=== PATIENT | male | born 1950 | race Caucasian/White ===

== ENCOUNTER 2016-09-19 00:44 | Emergency (ER) | payer MEDICARE, MEDICAID ==
[~2016-09-19] VITALS: Ht 172.7 cm; Wt 77.6 kg
[2016-09-19 01:24] VITALS: BP 128/74
[2016-09-19] MEDS ORDERED: GABA800T2 PO (01:29)
[2016-09-19] MEDS ORDERED: ENAL10TA PO (01:29)
[2016-09-19] MEDS ORDERED: CITA40TA5 PO (01:29)
[2016-09-19] MEDS ORDERED: TRAZ50TA18 PO (01:30)
[2016-09-19] MEDS ORDERED: ASPIRIN 81 MG TABLET CHEW PO ONE (01:30)
[2016-09-19] MEDS ORDERED: NITROGLYCERIN SINGLE TAB 0.4 MG SL PRN (01:30)
[2016-09-19] MEDS ORDERED: MORPHINE SULFATE 4 MG/ML, 1ML IVPush PRN (01:30)
[2016-09-19 01:49] LABS: BLOOD UREA NITROGEN 14 mg/dL (7-18)
[2016-09-19 01:53] LABS: IS PT STATUS REG ER OR PRE ER? YES
== END 2016-09-19 04:37 | disposition home or self-care (01) ==
LOC: ED 01:59
DX: R07.89 Other chest pain (principal); I10 Essential (primary) hypertension; E78.00 Pure hypercholesterolemia, unspecified
CPT/HCPCS: 36415; 71275; 80048; 82040; 84484; 85025; 93005

== ENCOUNTER 2018-04-25 08:03 | Emergency (ER) | payer MEDICARE, MEDICAID ==
[~2018-04-25] VITALS: Ht 172.7 cm; Wt 81.0 kg
[~2018-04-25 08:03] MED LIST: CITA40TA5 PO; ENAL10TA PO; GABA800T2 PO; TRAZ50TA66 PO
--- NOTE | 2018-04-25 08:36 | NUR ---
ERP AT BS
[2018-04-25 09:21] LABS: BASOPHILS # (AUTO) 0.11 x10^3/uL (0-0.1); BASOPHILS % (AUTO) 1 % (0-1); EOSINOPHILS # (AUTO) 0.24 x10^3/uL (0-0.4); EOSINOPHILS % (AUTO) 3 % (1-7); LYMPHOCYTES % (AUTO) 34 % (22-44); MD NO; MEAN CORPUSCULAR HGB CONC 33.3 g/dL (33.2-36.2); MEAN PLATELET VOLUME 8.9 fL (7.4-10.4); MONOCYTES # (AUTO) 0.88 x10^3/uL (0.2-0.8); MONOCYTES % (AUTO) 10 % (2-9); NEUTROPHILS # (AUTO) 4.41 x10^3/uL (1.8-6.8); NEUTROPHILS % (AUTO) 52 % (42-75); PLATELET COUNT 318 x10^3/uL (130-400); RED BLOOD COUNT 4.44 x10^6/uL (4.38-5.82); RED CELL DISTRIBUTION WIDTH 14.8 % (9.4-14.8)
[2018-04-25 09:32] LABS: ALANINE AMINOTRANSFERASE 27 U/L (12-78); ANION GAP 5 mmol/L (5-15); CALCIUM 9.2 mg/dL (8.5-10.1); CHLORIDE 110 mmol/L (98-107); CREATININE 1.06 mg/dL (0.7-1.3)
[2018-04-25 09:35] LABS: ALKALINE PHOSPHATASE 67 U/L (45-117); BILIRUBIN,TOTAL 0.3 mg/dL (0.2-1.0); CREATINE KINASE, TOTAL 147 U/L (39-308); TOTAL PROTEIN 7.3 g/dL (6.4-8.2)
[2018-04-25 10:35] VITALS: BP 157/96
== END 2018-04-25 11:31 | disposition home or self-care (01) ==
LOC: ED 09:00
DX: R20.2 Paresthesia of skin (principal); I10 Essential (primary) hypertension
CPT/HCPCS: 36415; 80053; 82550; 85025; 85651; 99283

== ENCOUNTER → 2018-06-08 | Outpatient (CLI) | payer MEDICARE, MEDICAID ==
[~2018-06-08] MED LIST changes: -GABA800T2 PO; +GABA800T5 PO
== END | disposition home or self-care (01) ==
LOC: CFH 13:28
PROVIDERS: ATTEND Orthopaedic Surgery
DX: M47.26 Other spondylosis with radiculopathy, lumbar region (principal); M48.061 Spinal stenosis, lumbar region without neurogenic claudication; M51.16 Intervertebral disc disorders with radiculopathy, lumbar region; Z96.642 Presence of left artificial hip joint; Z96.641 Presence of right artificial hip joint
CPT/HCPCS: 72148

== ENCOUNTER 2018-06-20 19:14 | Emergency (ER) | payer MEDICARE, MEDICAID ==
[~2018-06-20] VITALS: Ht 172.7 cm; Wt 80.8 kg
[2018-06-20 19:16] VITALS: BP 163/99
== END 2018-06-20 20:25 | disposition home or self-care (01) ==
LOC: ED 20:05
DX: R53.81 Other malaise (principal); Z76.0 Encounter for issue of repeat prescription; I10 Essential (primary) hypertension; E78.00 Pure hypercholesterolemia, unspecified
CPT/HCPCS: 93005; 99283

== ENCOUNTER 2018-07-10 02:00 | Emergency (ER) | payer MEDICARE, MEDICAID ==
[~2018-07-10] VITALS: Ht 172.7 cm; Wt 77.9 kg
[2018-07-10 02:02] VITALS: BP 137/91
--- NOTE | 2018-07-10 02:15 | NUR ---
PT RAN OUT OF MEDS, IN NO DISTRESS, AWAITING PA
--- NOTE | 2018-07-10 03:00 | NUR ---
Patient/Caregiver given discharge instructions and they have confirmed that they understand the instructions. Patient ambulatory with steady gait.
== END 2018-07-10 03:02 | disposition home or self-care (01) ==
LOC: ED 02:55
DX: M79.18 Myalgia, other site (principal); Z76.0 Encounter for issue of repeat prescription; F17.200 Nicotine dependence, unspecified, uncomplicated
CPT/HCPCS: 99283

== ENCOUNTER 2018-07-25 00:45 | Inpatient (IN) | payer MEDICARE, MEDICAID ==
[~2018-07-25] VITALS: Ht 172.7 cm; Wt 76.8 kg
--- NOTE | 2018-07-25 00:52 | NUR ---
PT AMBULATED BACK TO ROOM WITHOUT DIFFICULTY.
--- NOTE | 2018-07-25 01:03 | NUR ---
PT STATES HE FELL AROUND 1600 YESTERDAY (07/24/18), BACKWARDS ON [employer] STAIRS. WORRIED ABOUT CONCUSSION. ALSO C/O POSTERIOR NECK PAIN. A&OX4. Addendum: 07/25/18 at 0231 by HBENSON PT C/O DIZZINESS AND NAUSEA TO ERP.
[2018-07-25] MEDS ORDERED: PROMETHAZINE 25MG TABLET PO PRN (01:30)
[2018-07-25] MEDS ORDERED: ACETAMINOPHEN 500 MG TABLET PO ONE (01:30)
--- NOTE | 2018-07-25 01:42 | NUR ---
PT TO CT VIA [facility].
--- NOTE | 2018-07-25 01:42 | NUR ---
Marleen mckenna in [facility] - 07/25/18 at [address] PT [address] VIA [facility].
[2018-07-25] MEDS ORDERED: PROMETHAZINE 25MG TABLET ONE (01:43)
[2018-07-25] MEDS ORDERED: ACETAMINOPHEN 500 MG TABLET ONE (01:44)
--- NOTE | 2018-07-25 02:04 | NUR ---
Marleen mckenna in ED - 07/25/18 at 0207 by HBELAWON PT ADMITS TO DRINKING ETOH AND USING METH (IV).
[2018-07-25 02:08] LABS: BASOPHILS # (AUTO) 0.05 x10^3/uL (0-0.1); BASOPHILS % (AUTO) 1 % (0-1); EOSINOPHILS # (AUTO) 0.23 x10^3/uL (0-0.4); EOSINOPHILS % (AUTO) 3 % (1-7); LYMPHOCYTES # (AUTO) 1.48 x10^3/uL (1-3.4); LYMPHOCYTES % (AUTO) 16 % (22-44); MD NO; MEAN CORPUSCULAR HEMOGLOBIN 35.1 pg (27.5-34.5); MEAN CORPUSCULAR HGB CONC 34.7 g/dL (33.2-36.2); MEAN CORPUSCULAR VOLUME 101.1 fL (81-97); MEAN PLATELET VOLUME 8.8 fL (7.4-10.4); MONOCYTES # (AUTO) 0.96 x10^3/uL (0.2-0.8); MONOCYTES % (AUTO) 11 % (2-9); NEUTROPHILS # (AUTO) 6.45 x10^3/uL (1.8-6.8); NEUTROPHILS % (AUTO) 70 % (42-75); PLATELET COUNT 272 x10^3/uL (130-400); RED BLOOD COUNT 3.92 x10^6/uL (4.38-5.82); RED CELL DISTRIBUTION WIDTH 16.5 % (9.4-14.8)
[2018-07-25 02:15] LABS: ANION GAP 13 mmol/L (5-15); CALCIUM 8.8 mg/dL (8.5-10.1); CHLORIDE 102 mmol/L (98-107); CREATININE 3.87 mg/dL (0.7-1.3)
[2018-07-25] MEDS ORDERED: LEVOTHYROXINE PO (02:29)
--- NOTE | 2018-07-25 02:31 | NUR ---
PT MEDICATED PER ORDERS. DRINKING WATER WITHOUT DIFFICULTY.
[2018-07-25] MEDS ORDERED: SODIUM CHLORIDE 0.9%, 500ML IVBOLUS ONE (03:00)
--- NOTE | 2018-07-25 03:00 | NUR ---
REPORT OF PT FROM ISAAC RAY AND ASSUMING CARE OF PT.
--- NOTE | 2018-07-25 03:02 | NUR ---
PT PLACED ON 2L O2 PER N/C FOR DESATING TO 82% ON RA WHILE SLEEP.
--- NOTE | 2018-07-25 03:23 | NUR ---
US AT BEDSIDE AT THIS TIME.
[2018-07-25] MEDS ORDERED: NICOTINE 21 MG/24 HR PATCH.TD24 TD ONE (03:30)
--- NOTE | 2018-07-25 03:47 | NUR ---
IV ACCESS OBTAINED. IV FLUIDS INITIATED PER JUN. [facility] AT [facility].
[2018-07-25] MEDS ORDERED: SODIUM CHLORIDE 0.9% 1,000 ML IV ONE (04:00)
--- NOTE | 2018-07-25 04:01 | NUR ---
pt sleeping in gurney at this time; nadn. visible rise and fall of chest noted equally and bilaterally. pt being admitted per erp. awaiting admit orders at this time
--- NOTE | 2018-07-25 05:05 | NUR ---
report of pt to lynda ulloa. all questions answered. awaiting transport at this time.
[2018-07-25 05:37] VITALS: BP 117/71
[2018-07-25] MEDS ORDERED: POLYETHYLENE GLYCOL 17 GM PACKET PO PRN (07:30)
[2018-07-25] MEDS ORDERED: GUAIFENESIN/DM 200-20MG, 10ML UDC PO PRN (07:30)
[2018-07-25] MEDS ORDERED: BISACODYL 10 MG SUPP PR PRN (07:30)
[2018-07-25] MEDS ORDERED: ONDANSETRON ODT 4 MG PO PRN (07:30)
[2018-07-25] MEDS ORDERED: LIDODERM 5% PATCH TD PRN (07:30)
[2018-07-25] MEDS ORDERED: DOCUSATE 100 MG CAPSULE PO PRN (07:30)
[2018-07-25] MEDS ORDERED: FOLIC ACID 5 MG/ML IM ONE (08:00)
[2018-07-25] MEDS ORDERED: LORazepam 2 MG/ML, 1ML IV PRN ×5 (08:00)
[2018-07-25] MEDS ORDERED: LORazepam 1MG TABLET PO PRN ×4 (08:00)
[2018-07-25] MEDS ORDERED: LORazepam 0.5MG TABLET PO PRN (08:00)
[2018-07-25 08:44] VITALS: BP 97/73
[2018-07-25 09:07] LABS: FREE T4 (FREE THYROXINE) 1.01 ng/dL (0.76-1.46)
[2018-07-25 09:08] LABS: HEMOGLOBIN A1C 6.3 % (4.2-6.3)
[2018-07-25] MEDS: MULTIVITAMINS/MINERALS TABLET PO SCH (09:25)
[2018-07-25 10:37] LABS: MICROSCOPIC NOT IND
[2018-07-25 10:46] LABS: AMPHETAMINE SCREEN, URINE Positive (Negative); BARBITURATE SCREEN, URINE Negative (Negative); BENZODIAZEPINE SCREEN, URINE Negative (Negative); CANNABINOID SCREEN, URINE Negative (Negative); CHLORIDE,URINE RANDOM 43 mmol/L; COCAINE SCREEN, URINE Negative (Negative); METHADONE SCREEN, URINE Negative (Negative); OPIATE SCREEN, URINE Negative (Negative); POTASSIUM,URINE RANDOM 24 mmol/L; SODIUM,URINE RANDOM 64 mmol/L
[2018-07-25 10:59] LABS: CULTURE INDICATED? NO
[2018-07-25] MEDS ORDERED: LACTATED RINGERS 1,000 ML IV SCH (12:00)
[2018-07-25] MEDS ORDERED: LEVOTHYROXINE 125 MCG TABLET ONE (12:04)
[2018-07-25] MEDS ORDERED: GABAPENTIN 400 MG CAPSULE ONE (12:04)
[2018-07-25] MEDS ORDERED: CITALOPRAM 20 MG TABLET ONE (12:04)
[2018-07-25] MEDS: CITALOPRAM 20 MG TABLET PO SCH (12:06)
[2018-07-25] MEDS: GABAPENTIN 400 MG CAPSULE PO SCH ×3 (12:06→21:39)
[2018-07-25] MEDS: LACTATED RINGERS 1,000 ML IV SCH ×2 (12:15→21:39)
[2018-07-25 13:00] VITALS: BP 130/82
[2018-07-25] MEDS: ACETAMINOPHEN 325 MG TABLET PO PRN ×2 (13:34→21:39)
[2018-07-25] MEDS ORDERED: GABAPENTIN 100 MG CAPSULE PO SCH (16:00)
[2018-07-25 19:18] VITALS: BP 141/80
[2018-07-26 01:18] VITALS: BP 133/76
[2018-07-26] MEDS: ACETAMINOPHEN 325 MG TABLET PO PRN ×4 (04:53→20:01)
[2018-07-26] MEDS: LACTATED RINGERS 1,000 ML IV SCH (05:00)
[2018-07-26] MEDS: LEVOTHYROXINE 125 MCG TABLET PO SCH (05:01)
[2018-07-26 05:16] LABS: BASOPHILS # (AUTO) 0.03 x10^3/uL (0-0.1); BASOPHILS % (AUTO) 0 % (0-1); EOSINOPHILS # (AUTO) 0.22 x10^3/uL (0-0.4); EOSINOPHILS % (AUTO) 3 % (1-7); LYMPHOCYTES # (AUTO) 1.17 x10^3/uL (1-3.4); LYMPHOCYTES % (AUTO) 16 % (22-44); MD NO; MEAN CORPUSCULAR HEMOGLOBIN 34.4 pg (27.5-34.5); MEAN CORPUSCULAR HGB CONC 33.6 g/dL (33.2-36.2); MEAN CORPUSCULAR VOLUME 102.4 fL (81-97); MEAN PLATELET VOLUME 8.7 fL (7.4-10.4); MONOCYTES # (AUTO) 0.58 x10^3/uL (0.2-0.8); MONOCYTES % (AUTO) 8 % (2-9); NEUTROPHILS # (AUTO) 5.13 x10^3/uL (1.8-6.8); NEUTROPHILS % (AUTO) 72 % (42-75); PLATELET COUNT 255 x10^3/uL (130-400); RED BLOOD COUNT 3.97 x10^6/uL (4.38-5.82); RED CELL DISTRIBUTION WIDTH 16.4 % (9.4-14.8)
[2018-07-26 05:22] LABS: ANION GAP 6 mmol/L (5-15); CHLORIDE 107 mmol/L (98-107); CREATININE 1.15 mg/dL (0.7-1.3)
[2018-07-26] MEDS ORDERED: LEVOTHYROXINE 100 MCG TABLET PO SCH ×2 (06:00)
[2018-07-26 07:25] VITALS: BP 129/88
[2018-07-26] MEDS: GABAPENTIN 400 MG CAPSULE PO SCH ×3 (08:02→20:01)
[2018-07-26] MEDS: CITALOPRAM 20 MG TABLET PO SCH (08:02)
[2018-07-26] MEDS: MULTIVITAMINS/MINERALS TABLET PO SCH (08:02)
[2018-07-26] MEDS ORDERED: CITALOPRAM 20 MG TABLET PO SCH (09:00)
[2018-07-26] MEDS ORDERED: GABAPENTIN 400 MG CAPSULE PO SCH (09:00)
[2018-07-26] MEDS ORDERED: THIAMINE 100 MG in DEXTROSE 5% 50 ML IVPB SCH (09:00)
[2018-07-26 13:30] VITALS: BP 135/80
[2018-07-26] MEDS ORDERED: NICOTINE 21 MG/24 HR PATCH.TD24 ONE (13:44)
[2018-07-26 13:55] VITALS: BP 137/86
[2018-07-26 13:57] VITALS: BP 118/74
[2018-07-26] MEDS ORDERED: NICOTINE 21 MG/24 HR PATCH.TD24 TD SCH (14:00)
[2018-07-26 20:16] VITALS: BP 153/88
[2018-07-27] MEDS: ACETAMINOPHEN 325 MG TABLET PO PRN ×3 (00:14→10:00)
[2018-07-27 01:58] VITALS: BP 148/76
[2018-07-27] MEDS: LEVOTHYROXINE 125 MCG TABLET PO SCH (05:21)
[2018-07-27 06:19] LABS: ANION GAP 6 mmol/L (5-15); CALCIUM 8.9 mg/dL (8.5-10.1); CHLORIDE 107 mmol/L (98-107)
[2018-07-27 06:22] LABS: MEAN CORPUSCULAR HEMOGLOBIN 34.5 pg (27.5-34.5); MEAN CORPUSCULAR HGB CONC 33.7 g/dL (33.2-36.2); MEAN CORPUSCULAR VOLUME 102.4 fL (81-97); MEAN PLATELET VOLUME 8.8 fL (7.4-10.4); PLATELET COUNT 272 x10^3/uL (130-400); RED BLOOD COUNT 3.82 x10^6/uL (4.38-5.82); RED CELL DISTRIBUTION WIDTH 16.4 % (9.4-14.8)
[2018-07-27 06:50] LABS: BASOPHILS # (AUTO) 0.03 x10^3/uL (0-0.1); BASOPHILS % (AUTO) 1 % (0-1); EOSINOPHILS # (AUTO) 0.21 x10^3/uL (0-0.4); EOSINOPHILS % (AUTO) 3 % (1-7); LYMPHOCYTES # (AUTO) 1.23 x10^3/uL (1-3.4); LYMPHOCYTES % (AUTO) 18 % (22-44); MD SCAN; MONOCYTES # (AUTO) 0.71 x10^3/uL (0.2-0.8); MONOCYTES % (AUTO) 10 % (2-9); NEUTROPHILS # (AUTO) 4.73 x10^3/uL (1.8-6.8); NEUTROPHILS % (AUTO) 68 % (42-75)
[2018-07-27 07:14] VITALS: BP 144/95
[2018-07-27] MEDS ORDERED: THIAMINE 100MG TABLET PO SCH (09:00)
[2018-07-27] MEDS: CITALOPRAM 20 MG TABLET PO SCH (09:59)
[2018-07-27] MEDS: MULTIVITAMINS/MINERALS TABLET PO SCH (09:59)
[2018-07-27] MEDS: GABAPENTIN 400 MG CAPSULE PO SCH (09:59)
== END 2018-07-27 11:05 | disposition left against medical advice (07) | DRG 683 ==
LOC: ED 02:31 → EDIP 03:58 → 4NOR 05:23
PROVIDERS: ADMIT Family Medicine; ATTEND Family Medicine
DX: N17.0 Acute kidney failure with tubular necrosis (principal); E22.2 Syndrome of inappropriate secretion of antidiuretic hormone; E87.2 Acidosis; Z53.21 Procedure and treatment not carried out due to patient leaving prior to being seen by health care provider; G62.9 Polyneuropathy, unspecified; M19.90 Unspecified osteoarthritis, unspecified site; I95.9 Hypotension, unspecified; D75.89 Other specified diseases of blood and blood-forming organs; E03.9 Hypothyroidism, unspecified; E78.00 Pure hypercholesterolemia, unspecified; E86.9 Volume depletion, unspecified; F17.210 Nicotine dependence, cigarettes, uncomplicated; I10 Essential (primary) hypertension; R29.6 Repeated falls; S80.211A Abrasion, right knee, initial encounter; S80.212A Abrasion, left knee, initial encounter; W18.39XA Other fall on same level, initial encounter; Y93.89 Activity, other specified; Y92.89 Other specified places as the place of occurrence of the external cause; Y99.8 Other external cause status
CPT/HCPCS: 36415; 70450; 76770; 80048; 80307; 81003; 82436; 82570; 82607; 83036; 83735; 84133; 84300; 84439; 84443; 85025; 99285; G0378; J3411; Q0169; J7030; J7040; J7120

== ENCOUNTER 2018-08-10 22:40 | Emergency (ER) | payer MEDICARE, MEDICAID ==
[~2018-08-10] VITALS: Ht 172.7 cm; Wt 77.5 kg
[~2018-08-10 22:40] MED LIST changes: +LEVOTHYROXINE PO
[2018-08-10 22:41] VITALS: BP 182/109
[2018-08-10] MEDS ORDERED: ACETAMINOPHEN 325 MG TABLET PO ONE (23:30)
[2018-08-10] MEDS ORDERED: ACETAMINOPHEN 325 MG TABLET ONE (23:35)
== END 2018-08-10 23:40 | disposition home or self-care (01) ==
LOC: ED 23:34
DX: G89.29 Other chronic pain (principal); Z72.9 Problem related to lifestyle, unspecified; M19.90 Unspecified osteoarthritis, unspecified site; E78.00 Pure hypercholesterolemia, unspecified; I10 Essential (primary) hypertension
CPT/HCPCS: 99282